=== PATIENT | female | born 1980 | race Caucasian/White ===

== ENCOUNTER 2016-06-28 20:44 | Emergency (ER) | payer MEDICAID ==
[~2016-06-28] VITALS: Ht 172.7 cm; Wt 70.3 kg
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
[2016-06-28 21:42] LABS: APPEARANCE,URINE Cloudy (CLEAR); BLOOD, URINE Small Ery/uL (NEGATIVE); COLOR,URINE Other (YELLOW); KETONES,URINE 80 (NEGATIVE); LEUKOCYTE ESTERASE ,URINE Large (NEGATIVE); NITRITE, URINE Positive (NEGATIVE); PROTEIN,URINE >=300 mg/dl (NEGATIVE); UROBILINOGEN,URINE >=8.0 EU/dL (0.2)
[2016-06-28 21:46] LABS: BILIRUBIN,URINE MODERATE (NEGATIVE); UGLUCOSE 250 MG/DL mg/dL (NEGATIVE)
[2016-06-28 21:53] LABS: PREGNANCY TEST URINE QUAL NEGATIVE (NEGATIVE)
[2016-06-28 21:56] LABS: ADD URINE CULTURE YES; BACTERIA,URINE Few /HPF (None Seen); SQUAMOUS EPITHELIAL CELL,UR Few /HPF (None Seen); URINE AMORPHOUS URATE Moderate /HPF (None Seen)
[2016-06-28] MEDS ORDERED: METRONIDAZOLE 500 MG TABLET ONE (22:07)
[2016-06-28] MEDS ORDERED: METRONIDAZOLE 500 MG TABLET PO ONE (22:30)
--- NOTE | 2016-06-28 22:30 | NUR ---
Patient discharged to home in stable condition. Written and verbal after care instructions given. Patient verbalizes understanding of instruction. AMBULATORY WITH STEADY GAIT.
[2016-06-28 22:32] VITALS: BP 125/94
--- NOTE | 2016-06-28 22:33 | NUR ---
UNABLE TO DEPART PT IN THE COMPUTER
[2016-06-30 22:18] LABS: *NEISSERIA GONORRHOEAE NAA Negative (Negative); CHLAMYDIA TRACHOMATIS NAA Negative (Negative)
== END 2016-06-29 06:22 | disposition home or self-care (01) ==
LOC: ER 06-29 06:20
DX: A59.01 Trichomonal vulvovaginitis (principal); F10.20 Alcohol dependence, uncomplicated
CPT/HCPCS: 81000-TC; 84703-TC; 87086-TC; 87210-TC; 87491; 87591; A4606; Z7610

== ENCOUNTER 2018-03-28 10:15 | Inpatient (IN) | payer MEDICAID ==
[~2018-03-28] VITALS: Ht 170.2 cm; Wt 57.6 kg
[~2018-03-28 10:15] MED LIST: CEPH-570 PO; FOLI1TAB16 PO; LORA-259 PO; THIA100T13 PO
[2018-03-28] MEDS ORDERED: LIDOCAINE 1% INJ 50 ML MDV IJ ONE ×2 (11:00→11:05)
[2018-03-28 11:04] LABS: BASOPHILS # (AUTO) 0.1 /CMM (0.0-0.2); BASOPHILS % (AUTO) 0.5 % (0.0-2.0); EOSINOPHILS % (AUTO) 0.6 % (0.0-6.0); HEMATOCRIT 38 % (33-45); HEMOGLOBIN 12.8 g/dL (11.5-14.8); LYMPHOCYTES # (AUTO) 2.5 /CMM (0.8-4.8); MEAN CORPUSCULAR HGB CONC 34 g/dl (31.0-36.0); MEAN CORPUSCULAR VOLUME 108 fL (82-100); MONOCYTES # (AUTO) 0.7 /CMM (0.1-1.30); MONOCYTES % (AUTO) 5.4 % (2.0-12.0); NEUTROPHILS # (AUTO) 9.1 /CMM (1.8-8.9); NEUTROPHILS % (AUTO) 73.5 % (43.0-81.0); PLATELET COUNT (AUTO) 205 /CMM (150-450); RED BLOOD CELL COUNT(AUTO) 3.51 MIL/uL (4.0-5.2); WHITE BLOOD COUNT (AUTO) 12.3 K/uL (4.3-11.0)
[2018-03-28 11:12] LABS: CALCIUM, SERUM 8.2 mg/dL (8.5-10.1); CREATININE 0.5 mg/dL (0.6-1.3)
[2018-03-28 11:17] LABS: APPEARANCE,URINE Cloudy (CLEAR); BILIRUBIN,URINE Negative (NEGATIVE); BLOOD, URINE Moderate Ery/uL (NEGATIVE); COLOR,URINE Light yellow (YELLOW); KETONES,URINE Negative (NEGATIVE); LEUKOCYTE ESTERASE ,URINE Large (NEGATIVE); NITRITE, URINE Negative (NEGATIVE); PROTEIN,URINE Negative (NEGATIVE); UGLUCOSE Negative (NEGATIVE); UROBILINOGEN,URINE 0.2 EU/dL (0.2)
[2018-03-28 11:17] LABS: BILIRUBIN,TOTAL 0.6 mg/dL (0.2-1.0); TOTAL PROTEIN, SERUM 8.3 g/dL (6.4-8.2)
[2018-03-28 11:19] LABS: MAGNESIUM 1.2 mg/dL (1.8-2.4)
[2018-03-28 11:21] LABS: BACTERIA,URINE 3+ /HPF (None Seen); SQUAMOUS EPITHELIAL CELL,UR Few /HPF (None Seen); WBC,URINE 51-80 /HPF (0-3)
[2018-03-28] MEDS ORDERED: VANCOMYCIN 1 GM in IV D5W 250 ML IV ONE (12:00)
[2018-03-28] MEDS ORDERED: POTASSIUM CHLORIDE 20 MEQ TAB.PRT.SR PO ONE ×2 (12:00→12:07)
[2018-03-28] MEDS ORDERED: CEFTRIAXONE 1 G in IV D5W 50 ML IV ONE (12:00)
--- NOTE | 2018-03-28 12:00 | NUR ---
PELVIC EXAM DONE BY DR. MOYER VAGINAL WET MOUNT AND VAGINAL CX COLLECTED AND SENT OUT. RIGHT HAND BLISTERS EVACUATED BY . PT TOLERATED PROCEDURE WELL.
[2018-03-28 12:03] LABS: LYMPHOCYTES % (MANUAL) 15 % (16-48); MONOCYTES % (MANUAL) 8 % (0-11.0); NEUTROPHILS % (MANUAL) 77 (42-76)
[2018-03-28] MEDS ORDERED: CEFTRIAXONE 1GM BAG (ER ONLY) 50 ML IV ONE (12:06)
[2018-03-28] MEDS ORDERED: POTASSIUM CL. PREMIX PERIPHER. 50 ML ONE (12:06)
[2018-03-28] MEDS ORDERED: VANCOMYCIN 1 GM VIAL ONE (12:06)
--- NOTE | 2018-03-28 12:10 | NUR ---
DR DOCKERY ON LINE TALKING TO DR NOGUERA.
[2018-03-28] MEDS: POTASSIUM CL. PREMIX PERIPHER. 50 ML IV SCH ×2 (12:41→13:00)
--- NOTE | 2018-03-28 12:42 | NUR ---
CULTURE OF LEFT THIGH WOUND SENT OUT. TWO IV SITES INSERTED ON LEFT ARM AND UPPER ARM BOTH GAUGE 20. ABX AND POTASSIUM INFUSING ORDERED.
[2018-03-28] MEDS ORDERED: Magnesium 1GM/D5W 100ML PREMIX 100 ML IV ONE (12:55)
[2018-03-28 13:00] VITALS: BP 155/70
[2018-03-28] MEDS ORDERED: LORAZEPAM 1 MG TABLET PO PRN ×2 (13:00→13:30)
[2018-03-28] MEDS: Magnesium 1GM/D5W 100ML PREMIX 100 ML IV SCH ×2 (13:00→15:22)
[2018-03-28] MEDS ORDERED: METRONIDAZOLE 500 MG TABLET PO ONE (13:00)
[2018-03-28] MEDS ORDERED: METRONIDAZOLE 500 MG TABLET ONE (13:22)
[2018-03-28] MEDS ORDERED: FOLIC ACID 1 MG TABLET ONE (13:24)
[2018-03-28] MEDS: FOLIC ACID 1 MG TABLET PO SCH (13:26)
--- NOTE | 2018-03-28 13:27 | NUR ---
PT GOING TO ROOM 317 REPORT CALLED IN TO SHABBIR SNOW. ROCEPALEJANDRO COMPLETED, VANCO, MAG SULFATE AND POTASSIUM CHLORIDE WILL FINISH INFUSING IN MED-SURG. PT SALINED LOCKED PRIOR TO TRANSPORT VIA WHEELCHAIR. PT SHOWING NO SIGNS OF DISTRESS/PAIN.
[2018-03-28] MEDS ORDERED: MAGNESIUM HYDROXIDE 30 ML UDC PO PRN (13:30)
[2018-03-28] MEDS ORDERED: MAG HYDROX/AL HYDROX/SIMETH 30 ML UDC PO PRN (13:30)
[2018-03-28] MEDS ORDERED: ONDANSETRON HCL/PF 4 MG/2 ML VIAL IVP PRN (13:30)
[2018-03-28] MEDS ORDERED: Z GUARD REMEDY 2 OZ OINT TP PRN (13:30)
[2018-03-28] MEDS ORDERED: ACETAMINOPHEN 325 MG TABLET PO PRN (13:30)
[2018-03-28] MEDS ORDERED: HYDROCODONE/APAP 5/325MG 1 EACH TABLET PO PRN (13:30)
[2018-03-28] MEDS ORDERED: FEE PK DOSING 1 MIN EA MC ONE (13:38)
--- NOTE | 2018-03-28 13:45 | NUR ---
RN MS NOTES RECEIVED PT FROM E.R. STAFF VIA WHEELCHAIR, PT IS AWAKE, ALERT AND ORIENTED, ABLE TO TRANSFER FROM WHEELCHAIR TO BED, ASSISTED TO BED, MADE COMFORTABLE, NO COMPLAINT OF PAIN, BREATHING PATTERN NORMAL, ROOM SET UP ORIENTATION PROVIDED, VERBALIZED UNDERSTANDING, CALL LIGHT PLACED WITHIN EASY REACH, PLAN OF CARE DISCUSSED WITH PT, VERBALIZED UNDERSTANDING, NEEDS ATTENDED.
[2018-03-28] MEDS: IV NS 0.9% 1,000 ML IV PRN (13:57)
[2018-03-28 16:00] VITALS: BP 100/69
[2018-03-28] MEDS ORDERED: POTASSIUM CL. PREMIX PERIPHER. 50 ML IV SCH (16:00)
[2018-03-28] MEDS: LORAZEPAM INJ 2 MG/ML VIAL IV PRN ×2 (18:01→22:53)
--- NOTE | 2018-03-28 18:37 | NUR ---
RN MS NOTES PT IN BED, AWAKE, ALERT AND ORIENTED, WATCHING TV, NO COMPLAINT OF PAIN, IV FLUIDS INFUSING WELL, IV ATIVAN GIVEN ORDERED, PER PT SHE IS STARTING TO FEEL A BIT SHAKY, TOLERATING CURRENT DIET WELL, ALL NEEDS ATTENDED.
--- NOTE | 2018-03-28 19:45 | NUR ---
MS RN NOTE RECEIVED PT IN STABLE CONDITION A&O X4 WITH NO SIGNS OF SOB OR DISTRESS. PT CURRENTLY RESTING IN BED WITH ALL CURRENT NEEDS MET. NO INDICATIONS OF PAIN. SAFETY MEASURES IN PLACE: BED IN LOW/LOCKED POSITION, UPPER BED RAILS UP, AND CALL LIGHT WITHIN REACH.
[2018-03-28 20:00] VITALS: BP 117/64
[2018-03-28] MEDS: VANCOMYCIN 0.75 GM in IV D5W 250 ML IV SCH (21:17)
--- NOTE | 2018-03-28 22:57 | NUR ---
MS RN NOTE ATIVAN DOSE NOT ADMINISTERED D/T MEDICATION NOT TIME TO GIVE. WILL ADMINISTER ONCE ALLOWED. PT. MADE AWARE. WILL CONT. TO MONITOR.
[2018-03-29] MEDS: LORAZEPAM INJ 2 MG/ML VIAL IV PRN ×2 (00:02→20:51)
--- NOTE | 2018-03-29 00:03 | NUR ---
MS RN NOTE PRN ATIVAN 1 MG IV GIVEN TO PATIENT FOR ANXIETY M/B INABILITY TO STAY STILL. ALL VS STABLE. WILL CONT TO MONITOR.
[2018-03-29] MEDS: VANCOMYCIN 0.75 GM in IV D5W 250 ML IV SCH (04:28)
[2018-03-29] MEDS: IV NS 0.9% 1,000 ML IV PRN ×2 (04:33→20:45)
--- NOTE | 2018-03-29 06:24 | NUR ---
MS RN NOTE PT IN STABLE CONDITION A&O X4 WITH NO SIGNS OF SOB OR DISTRESS. PT CURRENTLY RESTING IN BED WITH ALL CURRENT NEEDS MET. NO INDICATIONS OF PAIN. SAFETY MEASURES IN PLACE: BED IN LOW/LOCKED POSITION, UPPER BED RAILS UP, AND CALL LIGHT WITHIN REACH. WILL ENDORSE TO NEXT SHIFT
[2018-03-29 07:08] LABS: BASOPHILS # (AUTO) 0.1 /CMM (0.0-0.2); BASOPHILS % (AUTO) 1.1 % (0.0-2.0); EOSINOPHILS % (AUTO) 2.3 % (0.0-6.0); HEMATOCRIT 37 % (33-45); HEMOGLOBIN 12.5 g/dL (11.5-14.8); LYMPHOCYTES # (AUTO) 1.6 /CMM (0.8-4.8); LYMPHOCYTES % (AUTO) 22.2 % (20.0-44.0); MEAN CORPUSCULAR HGB CONC 34 g/dl (31.0-36.0); MEAN CORPUSCULAR VOLUME 108 fL (82-100); MONOCYTES # (AUTO) 0.5 /CMM (0.1-1.30); MONOCYTES % (AUTO) 6.9 % (2.0-12.0); NEUTROPHILS # (AUTO) 4.9 /CMM (1.8-8.9); NEUTROPHILS % (AUTO) 67.5 % (43.0-81.0); PLATELET COUNT (AUTO) 158 /CMM (150-450); RED BLOOD CELL COUNT(AUTO) 3.42 MIL/uL (4.0-5.2); WHITE BLOOD COUNT (AUTO) 7.2 K/uL (4.3-11.0)
[2018-03-29 07:20] LABS: CALCIUM, SERUM 8.2 mg/dL (8.5-10.1); CREATININE 0.6 mg/dL (0.6-1.3); MAGNESIUM 1.4 mg/dL (1.8-2.4); PHOSPHORUS 3.4 mg/dL (2.5-4.9); POTASSIUM 3.3 mmol/L (3.5-5.1)
--- NOTE | 2018-03-29 07:30 | NUR ---
MS RN OPENING NOTES RECEIVED PATIENT IN STABLE CONDITION. IN NO APPARENT DISTRESS. BEDSIDE RAILS ARE UPX2. BED IS LOCKED AND LOWERED. CALL LIGHT IS WITHIN REACH. IV LINE IS INTACT AND PATENT. WILL CONTINUE TO MONITOR PATIENT.
[2018-03-29 08:00] VITALS: BP 122/78
[2018-03-29] MEDS: FOLIC ACID 1 MG TABLET PO SCH (08:44)
[2018-03-29] MEDS: PANTOPRAZOLE 40 MG TABLET.DR PO SCH (08:44)
[2018-03-29] MEDS: THIAMINE HCL 100 MG TABLET PO SCH (08:44)
[2018-03-29] MEDS ORDERED: POTASSIUM CHLORIDE 20 MEQ TAB.PRT.SR PO SCH (10:30)
[2018-03-29] MEDS: Magnesium 1GM/D5W 100ML PREMIX 100 ML IV SCH ×4 (11:01→15:50)
[2018-03-29] MEDS: NEOMY SULF/BACITRAC ZN/POLY 15 GM TUBE TP SCH (12:31)
[2018-03-29] MEDS: METRONIDAZOLE 500 MG TABLET PO SCH ×2 (13:38→20:45)
[2018-03-29] MEDS ORDERED: CEFTRIAXONE 1 G in IV D5W 50 ML IV SCH (14:00)
[2018-03-29 16:00] VITALS: BP 112/72
[2018-03-29] MEDS: LACTOBACILLUS RHAMNOSUS GG 1 EACH CAP.SPRINK PO SCH (16:10)
--- NOTE | 2018-03-29 16:40 | NUR ---
Social service consult requested by [employer] for homelessness. Pt is a 38 year old female admitted to [facility] for acute concerns (alcohol withdrawals, blisters on her fingers and vaginal discharge per H&P). Sw met with pt at bedside, pt appeared to be clean and well-groomed. Pt had some of her belongings at beside. Pt is alert and oriented x4. Pt states she has been homeless on and of for many years. Pt [place] on [facility] or by the [facility] Pt reports she has been excessively drinking alcohol since 1994, pt reports she began drinking wine however now she drinks Vodka (1.75ml a day). Pt reports that she has recently lost her 23 year old brother to heroin. Pt has a daughter. Pt reports at time she resides with her sister Deena Vasques ( would not provide contact number, pt states she is not always cooperative over the phone). Pt reports she has a good relationship with her emergency contact her brother Jossue De Leon ([phone]). Pt reports alcohol abuse, denies any illisit drugs or tobacco use. Pt also reports she has been to multiple treatment centers including [facility]. Pt is hoping to return to [facility] post discharge when she is ready. Ondina provided emotional support and brief substance abuse intervention and referred to [facility], [facility] , [facility], , and [facility] . Ondina offered pt [facility] [place] [facility] placement and pt agreed to accept resources, sw also provided pt with [facility], food pantry and homeless resources in the [facility] area. Pt accepted all resources. Pts discharge plan is to discharge to her brother Jossue De Leon ([phone]) and return to her sisters home (address: [address] [place] [address]). Homeless patient waiver signed prior to discharge. ONDINA informed SHABBIR Ann of aforementioned discharge plan.
--- NOTE | 2018-03-29 19:23 | NUR ---
MS RN NOTES RECEIVE PT IN BED A/O X 4, IN STABLE CONDITION, NOT IN DISTRESS, SAFETY MEASURES IN PLACE. WILL CONTINUE TO MONITOR.
[2018-03-29 20:00] VITALS: BP_SYST 107; BP_SYST 109; BP_DIAS 79
--- NOTE | 2018-03-29 21:51 | NUR ---
MS RN NOTES PER PT SHE IS CALM NOW ATIVAN EFFECTIVE
[2018-03-30] MEDS: LORAZEPAM INJ 2 MG/ML VIAL IV PRN (03:39)
--- NOTE | 2018-03-30 04:39 | NUR ---
MS RN NOTES PER SHE IS MORE CALM ATIVAN EFFECTIVE
[2018-03-30] MEDS: METRONIDAZOLE 500 MG TABLET PO SCH ×2 (05:27→13:10)
--- NOTE | 2018-03-30 06:19 | NUR ---
MS RN CLOSING NOTES ASLEEP AND EASILY AWAKEN, ALL NURSING CARE RENDERED. NEEDS ATTENDED AND ANTICIPATED. NO COMPLAIN OF PAIN AT THIS TIME. TX ORDERED. GOOD SKIN CARE PROVIDED. KEPT CLEAN AND DRY AND COMFORTABLE, ON LOW BED AT ALL TIMES TO ENSURE SAFETY. SAFE HAZARD FREE ENVIRONMENT PROVIDED. CALL LIGHT WITHIN EASY TO REACH. WILL ENDORSE NEXT SHIFT CONTINUITY OF CARE
[2018-03-30 07:26] LABS: CALCIUM, SERUM 8.2 mg/dL (8.5-10.1); CREATININE 0.5 mg/dL (0.6-1.3); MAGNESIUM 1.9 mg/dL (1.8-2.4); POTASSIUM 4.1 mmol/L (3.5-5.1)
--- NOTE | 2018-03-30 07:30 | NUR ---
RN OPENING NOTES RECEIVED PT. PT IS STABLE AND RESTING IN BED. NO S/S OF RESP DISTRESS OR SOB. NO C/O PAIN AT THIS TIME. IV ACCESS LOCATED ON RFA, 20G INFUSING NS AT 100 ML/HR. SAFETY MEASURES IN PLACE, CALL LIGHT WITHIN REACH. WILL CONTINUE TO MONITOR.
[2018-03-30 08:00] VITALS: BP 116/80
[2018-03-30] MEDS: NEOMY SULF/BACITRAC ZN/POLY 15 GM TUBE TP SCH (09:08)
[2018-03-30] MEDS: FOLIC ACID 1 MG TABLET PO SCH (09:08)
[2018-03-30] MEDS: PANTOPRAZOLE 40 MG TABLET.DR PO SCH (09:08)
[2018-03-30] MEDS: LACTOBACILLUS RHAMNOSUS GG 1 EACH CAP.SPRINK PO SCH (09:08)
[2018-03-30] MEDS: THIAMINE HCL 100 MG TABLET PO SCH (09:09)
[2018-03-30] MEDS ORDERED: CEFTRIAXONE 1 G in IV D5W 50 ML IV SCH (13:00)
[2018-03-30] MEDS ORDERED: SULF1TAB48 PO (13:24)
[2018-03-30] MEDS ORDERED: METR500T PO (13:24)
--- NOTE | 2018-03-30 15:51 | NUR ---
DISCHARGE NOTE PT DISCHARGED HOME. VSS, PT STABLE. NO S/S OF RESP DISTRESS/SOB. NO C/O PAIN. D/C TEACHING PERFORMED, PT VERBALIZED UNDERSTANDING OF EDUCATION. DC INSTRUCTIONS AND BELONGINGS LIST SIGNED, COPIED, PLACED IN CHART. PT GIVEN PRESCRIPTION FOR PO ANTIBIOTICS, SCRIPT COPIED AND COPY PLACED IN CHART. PT REFUSED PHOTO WOUND DOCUMENTATION UPON D/C. IV ACCESS AND ID BAND REMOVED. PT LEFT HOSPITAL IN PRIVATE VEHICLE WITH FRIEND.
== END 2018-03-30 15:45 | disposition home or self-care (01) | DRG 383 ==
LOC: ER 10:16 → MED 12:59
PROVIDERS: ADMIT Internal Medicine
PROC: 0H9FXZZ Drainage of Right Hand Skin, External Approach (ICD-10-PCS; principal; 2018-03-28)
DX: L08.9 Local infection of the skin and subcutaneous tissue, unspecified (principal); E83.42 Hypomagnesemia; A56.02 Chlamydial vulvovaginitis; E87.1 Hypo-osmolality and hyponatremia; S60.422A Blister (nonthermal) of right middle finger, initial encounter; E87.6 Hypokalemia; N39.0 Urinary tract infection, site not specified; F10.239 Alcohol dependence with withdrawal, unspecified; Z59.0 Homelessness; B95.0 Streptococcus, group A, as the cause of diseases classified elsewhere; X58.XXXA Exposure to other specified factors, initial encounter; Y93.9 Activity, unspecified; Y92.9 Unspecified place or not applicable; B96.20 Unspecified Escherichia coli [E. coli] as the cause of diseases classified elsewhere
CPT/HCPCS: 36415; 80048-TC; 80053-TC; 80202-TC; 81000-TC; 83690-TC; 83735-TC; 84100-TC; 84702-TC; 85025-TC; 87070-TC; 87081-TC; 87086-TC; 87186-TC; 87210-TC; 87491; 87591; A4606; A6403; A6407; G0378; J0696; J2060; J3370; J3475; J3480; J3490; J7030; J7050; J7060; Z7610

== ENCOUNTER 2018-07-29 07:17 | Emergency (ER) | payer MEDICAID, OTHER ==
[~2018-07-29] VITALS: Ht 172.7 cm; Wt 63.5 kg
[~2018-07-29 07:17] MED LIST changes: -CEPH-570 PO; -LORA-259 PO; +METR500T PO; +SULF1TAB48 PO
[2018-07-29 07:24] VITALS: BP 115/88
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
--- NOTE | 2018-07-29 07:45 | NUR ---
URINE COLLECTED AND SENT TO LAB
--- NOTE | 2018-07-29 08:15 | NUR ---
PATIENT LEFT FOR X-RAY VIA GURNEY IN STABLE CONDITION
== END 2018-07-29 09:40 | disposition home or self-care (01) ==
LOC: ER 07:18
DX: S20.211A Contusion of right front wall of thorax, initial encounter (principal); F10.10 Alcohol abuse, uncomplicated; F19.10 Other psychoactive substance abuse, uncomplicated; Y90.9 Presence of alcohol in blood, level not specified; Z59.0 Homelessness; Z88.1 Allergy status to other antibiotic agents; W18.39XA Other fall on same level, initial encounter; Y93.89 Activity, other specified; Y92.89 Other specified places as the place of occurrence of the external cause; Y99.8 Other external cause status
CPT/HCPCS: 71100-TC; 84703-TC

== ENCOUNTER 2018-08-18 01:31 | Emergency (ER) ==
[~2018-08-18] VITALS: Ht 172.7 cm; Wt 64.4 kg
[2018-08-18] MEDS ORDERED: Magnesium 1GM/D5W 100ML PREMIX 100 ML IV ONE ×2 (01:51→02:10)
[2018-08-18] MEDS ORDERED: LORAZEPAM INJ 2 MG/ML VIAL ONE ×2 (01:52→03:22)
[2018-08-18 02:00] LABS: BASOPHILS % (AUTO) 0.3 % (0.0-2.0); MEAN CORPUSCULAR HGB CONC 35 g/dl (31.0-36.0); MONOCYTES # (AUTO) 1.2 /CMM (0.1-1.30); PLATELET COUNT (AUTO) 89 /CMM (150-450)
[2018-08-18] MEDS ORDERED: IV NS 0.9% 1,000 ML BAG IV ONE (02:00)
[2018-08-18] MEDS: Magnesium 1GM/D5W 100ML PREMIX 100 ML IV SCH ×4 (02:00→03:35)
[2018-08-18] MEDS ORDERED: LORAZEPAM INJ 2 MG/ML VIAL IVP ONE (02:00)
--- NOTE | 2018-08-18 02:00 | NUR ---
bib family for alcohol withdrawal and drug abuse. noted with tremors. placed on a monitor. RAC 20G IV started , blood was drawn and sent to the lab.
[2018-08-18 02:06] LABS: BASOPHILS # (AUTO) 0.1 /CMM (0.0-0.2); HEMATOCRIT 37 % (33-45); HEMOGLOBIN 12.7 g/dL (11.5-14.8); LYMPHOCYTES # (AUTO) 1.2 /CMM (0.8-4.8); LYMPHOCYTES % (AUTO) 7.6 % (20.0-44.0); MEAN CORPUSCULAR VOLUME 104 fL (82-100); MONOCYTES % (AUTO) 7.1 % (2.0-12.0); NEUTROPHILS # (AUTO) 13.9 /CMM (1.8-8.9); WHITE BLOOD COUNT (AUTO) 16.4 K/uL (4.3-11.0)
--- NOTE | 2018-08-18 02:07 | NUR ---
PER DR RAMIREZ'S ORDER TO RUN THE MAGNESIUM 1GR IV OVER 15 MINUTES
[2018-08-18 02:17] LABS: CALCIUM, SERUM 7.7 mg/dL (8.5-10.1); CREATININE 1.3 mg/dL (0.6-1.3)
[2018-08-18 02:21] LABS: ALBUMIN 3.1 g/dL (3.4-5.0); BILIRUBIN,DIRECT 0.3 mg/dL (0.0-0.2); BILIRUBIN,TOTAL 1.2 mg/dL (0.2-1.0); SALICYLATE 0.6 mg/dL (2.8-20.0); TOTAL PROTEIN, SERUM 8.6 g/dL (6.4-8.2)
[2018-08-18] MEDS ORDERED: ONDANSETRON HCL/PF 4 MG/2 ML VIAL ONE (02:22)
[2018-08-18 02:52] LABS: LYMPHOCYTES % (MANUAL) 4 % (16-48); MONOCYTES % (MANUAL) 4 % (0-11.0); NEUTROPHILS % (MANUAL) 92 (42-76)
[2018-08-18] MEDS ORDERED: IV PREMIX D5 NS + KCL 1,000 ML IV ONE (03:12)
[2018-08-18] MEDS ORDERED: Magnesium 1GM/D5W 100ML PREMIX 200 ML IV ONE (03:13)
[2018-08-18] MEDS ORDERED: IV PREMIX D5 1/2NS + KCL 1,000 ML IV ONE (03:13)
--- NOTE | 2018-08-18 03:25 | NUR ---
ativan 2mg vial was pulled out from the omnicll. 1mg was wasted with the damian funk rn and 1mg IVP was administered as ordered.
[2018-08-18] MEDS ORDERED: LORAZEPAM INJ 2 MG/ML VIAL IV ONE (03:30)
[2018-08-18] MEDS ORDERED: POTASSIUM CHLORIDE 20 MEQ TAB.PRT.SR PO ONE ×2 (03:30→03:48)
[2018-08-18] MEDS ORDERED: ONDANSETRON HCL/PF - ER 4 MG/2 ML VIAL IV ONE (03:30)
[2018-08-18] MEDS ORDERED: ACETAMINOPHEN ES 500 MG TABLET ONE (03:44)
[2018-08-18] MEDS ORDERED: ACETAMINOPHEN ES 500 MG TABLET PO ONE (04:00)
[2018-08-18 04:08] LABS: APPEARANCE,URINE Slightly Cloudy (CLEAR); BILIRUBIN,URINE Negative (NEGATIVE); BLOOD, URINE Moderate Ery/uL (NEGATIVE); COLOR,URINE Amber (YELLOW); KETONES,URINE Negative (NEGATIVE); LEUKOCYTE ESTERASE ,URINE Trace (NEGATIVE); NITRITE, URINE Positive (NEGATIVE); PH,URINE 5.5 (5.0-8.0); PROTEIN,URINE >=300 mg/dl (NEGATIVE); UGLUCOSE Negative (NEGATIVE)
[2018-08-18] MEDS ORDERED: CT SWABBABLE VALVE TRANS SET 1 EA INFUS.SET MC ONE (04:12)
[2018-08-18] MEDS ORDERED: IOHEXOL-300 100 ML VIAL IV ONE (04:12)
[2018-08-18] MEDS ORDERED: IV NS 0.9% 250 ML IV ONE (04:13)
--- NOTE | 2018-08-18 04:25 | NUR ---
PT LEFT FOR CT
[2018-08-18] MEDS ORDERED: CEFTRIAXONE 1 G in IV D5W 50 ML IV ONE (04:30)
--- NOTE | 2018-08-18 04:40 | NUR ---
BACK FROM CT IN STABLE CONDITION
[2018-08-18] MEDS ORDERED: CEFTRIAXONE 1GM BAG (ER ONLY) 50 ML IV ONE (04:51)
[2018-08-18] MEDS ORDERED: IBUPROFEN 600 MG TABLET PO ONE ×2 (05:03→05:30)
--- NOTE | 2018-08-18 05:07 | NUR ---
DR RAMIREZ MADE AWARE OF THE HIGH TEMP WITH A NEW ORDER FOR MOTRIN. NOTED
--- NOTE | 2018-08-18 05:36 | NUR ---
PER PT SHE IS NOT TAKING ANY MEDICATION AT HOME.
--- NOTE | 2018-08-18 05:57 | NUR ---
PT GONG TO TELE BED 326-2.
--- NOTE | 2018-08-18 06:04 | NUR ---
REPORT GIVEMN TO HUSAM SHEA. ON THIRD FLOOR
--- NOTE | 2018-08-18 06:43 | NUR ---
Patient is resting comfortably in bed with eyes closed. Easily aroused. VSS
[2018-08-18 06:45] LABS: BACTERIA,URINE Many /HPF (None Seen); SQUAMOUS EPITHELIAL CELL,UR Few /HPF (None Seen); WBC,URINE 51-80 /HPF (0-3)
--- NOTE | 2018-08-18 07:09 | NUR ---
PT ASLEEP ON MONITOR ST AT 109 ALERT AND ORINTED WHEN AWOKEN TEMPERATURE REDUCED PENDING ADMISSION
--- NOTE | 2018-08-18 07:59 | NUR ---
PT RE-EVALUATED BY MD BONILLA PT DISCHARGED TO HOME WITH [facility]CI AND PRESCRIPTION. PT STATES SHE IS NOT READY TO GO NEEDS ALEXANDRA SLEEP A LITTLE MORE. PT HAS ETOH ABUSE ANF WAS GIVEN ATIVAN
--- NOTE | 2018-08-18 08:46 | NUR ---
PT STILL UNSTEADY ON FEET USED BED KINGSLEY FOR URINATION
[2018-08-18 09:17] VITALS: BP 105/75
--- NOTE | 2018-08-18 09:18 | NUR ---
PT DISCHARGED TO HOME WITH FAMILY MEMBER DRIVING PT WALKED WITH STEADY GAIT
== END 2018-08-18 09:19 | disposition home or self-care (01) ==
LOC: ER 01:35 → UNDOADMIN 05:58 → TELE 05:58 → ER 09:19
DX: N12 Tubulo-interstitial nephritis, not specified as acute or chronic (principal); F10.239 Alcohol dependence with withdrawal, unspecified; Z87.891 Personal history of nicotine dependence; Z88.1 Allergy status to other antibiotic agents; Z79.899 Other long term (current) drug therapy; Y90.0 Blood alcohol level of less than 20 mg/100 ml
CPT/HCPCS: 36415; 71045; 74177; 80048; 80076; 80305; 80307; 80329; 81001; 83690; 83735; 84484; 84703; 85025; 87077; 87081; 87086; 87186; 93005; 96365; 96366; 96368; 96375; 96376; 99284; G0480; J0696 ×2; J2060 ×3; J2405 ×2; J3475 ×3; J3490 ×2; J7030; J7050; J7060; Q9967; 81000-TC

== ENCOUNTER 2018-09-14 12:28 | Emergency (ER) | payer OTHER ==
[~2018-09-14] VITALS: Ht 172.7 cm; Wt 65.8 kg
--- NOTE | 2018-09-14 12:40 | NUR ---
CAME IN FOR ALBUTEROL REFILL. TO ER BED 10, HOOKED TO MONITOR, AWAITING MD ALARCON
--- NOTE | 2018-09-14 12:55 | NUR ---
MARCELL RUTLEDGE AT BEDSIDE
[2018-09-14] MEDS ORDERED: predniSONE 20 MG TABLET PO ONE (13:00)
[2018-09-14] MEDS ORDERED: IPRATROPIUM NEB FS 0.5 MG/2.5 ML AMPUL.NEB NEB ONE (13:00)
[2018-09-14] MEDS ORDERED: ALBUTEROL FS 2.5 MG/3 ML VIAL.NEB NEB ONE (13:00)
[2018-09-14] MEDS ORDERED: predniSONE 20 MG TABLET ONE (13:05)
[2018-09-14] MEDS ORDERED: IPRATROPIUM NEB FS 0.5 MG/2.5 ML AMPUL.NEB ONE (13:18)
[2018-09-14] MEDS ORDERED: ALBUTEROL FS 2.5 MG/3 ML VIAL.NEB ONE (13:18)
--- NOTE | 2018-09-14 13:25 | NUR ---
RT AT BEDSIDE, STARTED PT ON BREATHING TREATMENT
--- NOTE | 2018-09-14 14:31 | NUR ---
Patient discharged to home in stable condition. Written and verbal after care instructions given. Patient verbalizes understanding of instruction.
[2018-09-14 14:32] VITALS: BP 109/71
== END 2018-09-14 14:32 | disposition home or self-care (01) ==
LOC: ER 12:50
DX: J45.909 Unspecified asthma, uncomplicated (principal); F19.10 Other psychoactive substance abuse, uncomplicated; F10.10 Alcohol abuse, uncomplicated; F11.10 Opioid abuse, uncomplicated; Y90.9 Presence of alcohol in blood, level not specified; Z76.0 Encounter for issue of repeat prescription; Z88.1 Allergy status to other antibiotic agents; Z60.2 Problems related to living alone
CPT/HCPCS: 94644; 99285; J7512

== ENCOUNTER 2018-09-22 17:08 | Emergency (ER) | payer OTHER ==
[~2018-09-22] VITALS: Ht 160 cm; Wt 49.9 kg
--- NOTE | 2018-09-22 17:30 | NUR ---
SENT HERE FROM URGENT CARE DUE TO FOUL SMELLING BLOODY VAGINAL DISCHARGE. PT AAOX4, VSS. DENIES ANY OTHER DISCOMFORT AT THIS TIME. AWAITING EVAL BY ERMD/TECHNICIAN TERMINAL AND REPEATER. WILL CONT TO MONITOR.
[2018-09-22] MEDS ORDERED: CEFTRIAXONE 500 MG VIAL ONE (18:22)
[2018-09-22] MEDS ORDERED: AZITHROMYCIN 250 MG TABLET ONE (18:22)
[2018-09-22] MEDS ORDERED: PENICILLIN G BENZATHINE 2.4 MMU/4 ML ML IM ONE ×2 (18:23→18:30)
[2018-09-22] MEDS ORDERED: CEFTRIAXONE 500 MG VIAL IM ONE (18:30)
[2018-09-22] MEDS ORDERED: AZITHROMYCIN 250 MG TABLET PO ONE (18:30)
--- NOTE | 2018-09-22 18:40 | NUR ---
MEDICATED PER BECCA COURTROOM CLERK'S ORDER. PT BOB WELL.
[2018-09-22 19:19] VITALS: BP 127/86
--- NOTE | 2018-09-22 19:19 | NUR ---
Patient discharged to home in stable condition. Written and verbal after care instructions given. Patient verbalizes understanding of instruction.
== END 2018-09-22 19:20 | disposition home or self-care (01) ==
LOC: ER 17:11
DX: A64 Unspecified sexually transmitted disease (principal); F19.10 Other psychoactive substance abuse, uncomplicated; F10.10 Alcohol abuse, uncomplicated; F11.10 Opioid abuse, uncomplicated; Y90.9 Presence of alcohol in blood, level not specified; Z88.1 Allergy status to other antibiotic agents; Z60.2 Problems related to living alone
CPT/HCPCS: 36415; 80074; 86780; 87806; 96372 ×2; 99283; J0558; J0696

== ENCOUNTER 2018-12-01 10:36 | Emergency (ER) | payer OTHER ==
[~2018-12-01] VITALS: Ht 172.7 cm; Wt 63.0 kg
--- NOTE | 2018-12-01 10:55 | NUR ---
SEEN BY DR BARROS, VERBALIZED SHE IS NOW HOMELESS
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
--- NOTE | 2018-12-01 11:16 | NUR ---
ONDINA DUARTE AT BEDSIDE FOR EVAL.
--- NOTE | 2018-12-01 11:19 | NUR ---
CALLED DIETARY FOR FOOD TRAY
--- NOTE | 2018-12-01 11:36 | NUR ---
[employer] AT BEDSIDE
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
--- NOTE | 2018-12-01 12:20 | NUR ---
Patient given written and verbal discharge instructions. Patient verbalizes understanding of instructions. Patient is ambulatory with steady gait. Refuses offer of retirement placement. Patient given list of available shelters in surrounding area.
[2018-12-01 12:23] VITALS: BP 132/86
== END 2018-12-01 12:20 | disposition home or self-care (01) ==
LOC: ER 10:38
DX: S00.531A Contusion of lip, initial encounter (principal); S40.021A Contusion of right upper arm, initial encounter; F10.10 Alcohol abuse, uncomplicated; F19.10 Other psychoactive substance abuse, uncomplicated; F11.10 Opioid abuse, uncomplicated; Y90.9 Presence of alcohol in blood, level not specified; Z88.1 Allergy status to other antibiotic agents; Y04.8XXA Assault by other bodily force, initial encounter; Y93.89 Activity, other specified; Y92.89 Other specified places as the place of occurrence of the external cause; Y99.8 Other external cause status

== ENCOUNTER → 2018-12-18 | Emergency (ER) | payer OTHER ==
[~2018-12-18] VITALS: Ht 172.7 cm; Wt 60.3 kg
[~2018-12-18] MED LIST changes: -FOLI1TAB16 PO; +IV NS 0.9% 1,000 ML BAG IV ONE; +KETOROLAC TROMETHAMINE 15 MG/ML VIAL ONE; +KETOROLAC TROMETHAMINE INJ 30 MG/ML VIAL IV ONE; -METR500T PO; +ONDANSETRON HCL/PF 4 MG/2 ML VIAL IVP ONE; +ONDANSETRON HCL/PF 4 MG/2 ML VIAL ONE; -SULF1TAB48 PO; -THIA100T13 PO
[2018-12-18 09:42] LABS: BASOPHILS # (AUTO) 0.2 /CMM (0.0-0.2); BASOPHILS % (AUTO) 4.1 % (0.0-2.0); EOSINOPHILS % (AUTO) 0.9 % (0.0-6.0); HEMATOCRIT 38 % (33-45); HEMOGLOBIN 13.1 g/dL (11.5-14.8); LYMPHOCYTES # (AUTO) 1.7 /CMM (0.8-4.8); LYMPHOCYTES % (AUTO) 39.1 % (20.0-44.0); MEAN CORPUSCULAR HGB CONC 34 g/dl (31.0-36.0); MEAN CORPUSCULAR VOLUME 100 fL (82-100); MONOCYTES # (AUTO) 0.3 /CMM (0.1-1.30); MONOCYTES % (AUTO) 8.2 % (2.0-12.0); NEUTROPHILS % (AUTO) 47.7 % (43.0-81.0); PLATELET COUNT (AUTO) 203 /CMM (150-450); WHITE BLOOD COUNT (AUTO) 4.2 K/uL (4.3-11.0)
[2018-12-18 09:45] LABS: APPEARANCE,URINE Clear (CLEAR); BILIRUBIN,URINE Negative (NEGATIVE); BLOOD, URINE Trace-lysed Ery/uL (NEGATIVE); COLOR,URINE Yellow (YELLOW); KETONES,URINE Negative (NEGATIVE); LEUKOCYTE ESTERASE ,URINE Trace (NEGATIVE); NITRITE, URINE Negative (NEGATIVE); PROTEIN,URINE 100 mg/dl (NEGATIVE); UGLUCOSE Negative (NEGATIVE)
[2018-12-18 09:49] LABS: CALCIUM, SERUM 8.6 mg/dL (8.5-10.1); CREATININE 0.6 mg/dL (0.6-1.3); POTASSIUM 3.5 mmol/L (3.5-5.1)
[2018-12-18 09:54] LABS: BACTERIA,URINE Few /HPF (None Seen); SQUAMOUS EPITHELIAL CELL,UR Few /HPF (None Seen)
--- NOTE | 2018-12-18 10:39 | NUR ---
PATIENT AWAKE ALERT MADE AWARE PLAN OF CARE
--- NOTE | 2018-12-18 11:05 | NUR ---
DC HOME INTRUCTION GIVEN AGREES TO CALL PMD IN 2 DAYS VERBALIZED UNDERSTANDING
[2018-12-18 11:07] VITALS: BP 123/67
== END | disposition home or self-care (01) ==
LOC: ER 09:11
DX: N12 Tubulo-interstitial nephritis, not specified as acute or chronic (principal); Z88.1 Allergy status to other antibiotic agents
CPT/HCPCS: 36415; 80048; 81001; 84703; 85025; 87086; 96374; 96375; 99283; J1885; J2405; J7030; 81000-TC

== ENCOUNTER 2019-02-10 16:26 | Emergency (ER) | payer OTHER ==
[~2019-02-10] VITALS: Ht 172.7 cm; Wt 64.9 kg
[2019-02-10 16:44] VITALS: BP 106/78
[2019-02-10 18:18] LABS: APPEARANCE,URINE Clear (CLEAR); BILIRUBIN,URINE Negative (NEGATIVE); BLOOD, URINE Small Ery/uL (NEGATIVE); COLOR,URINE Yellow (YELLOW); KETONES,URINE Negative (NEGATIVE); LEUKOCYTE ESTERASE ,URINE Small (NEGATIVE); NITRITE, URINE Negative (NEGATIVE); PH,URINE 6.5 (5.0-8.0); PROTEIN,URINE Negative (NEGATIVE); UGLUCOSE Negative (NEGATIVE); UROBILINOGEN,URINE 0.2 EU/dL (0.2)
[2019-02-10 18:38] LABS: BACTERIA,URINE 1+ /HPF (None Seen); SQUAMOUS EPITHELIAL CELL,UR Few /HPF (None Seen)
[2019-02-10 18:46] LABS: BASOPHILS # (AUTO) 0.1 /CMM (0.0-0.2); BASOPHILS % (AUTO) 1.5 % (0.0-2.0); EOSINOPHILS % (AUTO) 2.9 % (0.0-6.0); HEMATOCRIT 37 % (33-45); HEMOGLOBIN 12.6 g/dL (11.5-14.8); LYMPHOCYTES # (AUTO) 2.2 /CMM (0.8-4.8); LYMPHOCYTES % (AUTO) 48.7 % (20.0-44.0); MEAN CORPUSCULAR HGB CONC 34 g/dl (31.0-36.0); MEAN CORPUSCULAR VOLUME 103 fL (82-100); MONOCYTES # (AUTO) 0.2 /CMM (0.1-1.30); MONOCYTES % (AUTO) 5.2 % (2.0-12.0); NEUTROPHILS # (AUTO) 1.9 /CMM (1.8-8.9); NEUTROPHILS % (AUTO) 41.7 % (43.0-81.0); PLATELET COUNT (AUTO) 134 /CMM (150-450); RED BLOOD CELL COUNT(AUTO) 3.61 MIL/uL (4.0-5.2); WHITE BLOOD COUNT (AUTO) 4.6 K/uL (4.3-11.0)
[2019-02-10 18:52] LABS: CALCIUM, SERUM 8.4 mg/dL (8.5-10.1); CREATININE 0.7 mg/dL (0.6-1.3); POTASSIUM 3.7 mmol/L (3.5-5.1)
[2019-02-10 18:58] LABS: BILIRUBIN,DIRECT 0.1 mg/dL (0.0-0.2); BILIRUBIN,TOTAL 0.3 mg/dL (0.2-1.0); TOTAL PROTEIN, SERUM 8.4 g/dL (6.4-8.2)
[2019-02-10] MEDS: NITROFURANTOIN/NITROFURAN MAC 100 MG CAPSULE PO ONE (19:45)
== END 2019-02-10 19:45 | disposition home or self-care (01) ==
LOC: ER 16:28
DX: N39.0 Urinary tract infection, site not specified (principal); F10.20 Alcohol dependence, uncomplicated; R10.31 Right lower quadrant pain; D53.9 Nutritional anemia, unspecified; D69.6 Thrombocytopenia, unspecified; A53.9 Syphilis, unspecified; Y90.9 Presence of alcohol in blood, level not specified; Z59.0 Homelessness; Z88.1 Allergy status to other antibiotic agents
CPT/HCPCS: 36415; 80048-TC; 80076-TC; 81000-TC; 84703-TC; 85025-TC; 87086-TC; 87186-TC

== ENCOUNTER 2019-07-13 12:30 | Emergency (ER) | payer OTHER ==
[~2019-07-13] VITALS: Ht 172.7 cm; Wt 68.0 kg
[2019-07-13 12:39] VITALS: BP 129/94
== END 2019-07-13 13:02 | disposition home or self-care (01) ==
LOC: ER 12:30
DX: B07.0 Plantar wart (principal); Z88.1 Allergy status to other antibiotic agents
CPT/HCPCS: 82962-TC

== ENCOUNTER 2019-10-07 13:11 | Emergency (ER) | payer OTHER ==
[~2019-10-07] VITALS: Ht 172.7 cm; Wt 59.0 kg
[2019-10-07 13:27] VITALS: BP 102/78
--- NOTE | 2019-10-07 13:56 | NUR ---
Patient awake alert non distress noted able to ambulated to bathroom urine obatined and send to lab
[2019-10-07 14:02] LABS: BILIRUBIN,URINE SMALL (NEGATIVE); BLOOD, URINE Negative Ery/uL (NEGATIVE); COLOR,URINE Yellow (YELLOW); KETONES,URINE Trace (NEGATIVE); LEUKOCYTE ESTERASE ,URINE Small (NEGATIVE); NITRITE, URINE Positive (NEGATIVE); PH,URINE 6.5 (5.0-8.0); PROTEIN,URINE 30 mg/dl (NEGATIVE); UGLUCOSE Negative (NEGATIVE)
[2019-10-07 14:07] LABS: APPEARANCE,URINE SLIGHTLY CLOUDY (CLEAR)
[2019-10-07 14:09] LABS: BACTERIA,URINE Many /HPF (None Seen); SQUAMOUS EPITHELIAL CELL,UR Few /HPF (None Seen); WBC,URINE 20-25 /HPF (0-3)
[2019-10-07 15:05] LABS: BASOPHILS # (AUTO) 0.1 /CMM (0.0-0.2); BASOPHILS % (AUTO) 2.3 % (0.0-2.0); EOSINOPHILS % (AUTO) 2.1 % (0.0-6.0); HEMATOCRIT 39 % (33-45); LYMPHOCYTES # (AUTO) 1.6 /CMM (0.8-4.8); MEAN CORPUSCULAR HGB CONC 34 g/dl (31.0-36.0); MEAN CORPUSCULAR VOLUME 96 fL (82-100); MONOCYTES # (AUTO) 0.3 /CMM (0.1-1.30); MONOCYTES % (AUTO) 10.8 % (2.0-12.0); NEUTROPHILS # (AUTO) 1.1 /CMM (1.8-8.9); NEUTROPHILS % (AUTO) 35.8 % (43.0-81.0); PLATELET COUNT (AUTO) 118 /CMM (150-450); RED BLOOD CELL COUNT(AUTO) 4.05 MIL/uL (4.0-5.2); WHITE BLOOD COUNT (AUTO) 3.2 K/uL (4.3-11.0)
[2019-10-07 15:14] LABS: CREATININE 0.8 mg/dL (0.6-1.3); POTASSIUM 3.6 mmol/L (3.5-5.1)
[2019-10-07 15:20] LABS: ALBUMIN 3.6 g/dL (3.4-5.0); BILIRUBIN,DIRECT 0.1 mg/dL (0.0-0.2); BILIRUBIN,TOTAL 0.3 mg/dL (0.2-1.0); TOTAL PROTEIN, SERUM 7.7 g/dL (6.4-8.2)
--- NOTE | 2019-10-07 15:30 | NUR ---
Patient discharged to home in stable condition. Written and verbal after care instructions given. Patient verbalizes understanding of instruction.
--- NOTE | 2019-10-07 15:31 | NUR ---
DC home with prescription ,i removed helplock RAC noted cath intact no edema no pain
== END 2019-10-07 15:31 | disposition home or self-care (01) ==
LOC: ER 13:15
DX: N39.0 Urinary tract infection, site not specified (principal); Z88.1 Allergy status to other antibiotic agents
CPT/HCPCS: 36415; 80048-TC; 80076-TC; 81000-TC; 83690-TC; 84703-TC; 85025-TC; 87086-TC; 87186-TC

== ENCOUNTER 2019-10-24 13:29 | Emergency (ER) | payer OTHER ==
[~2019-10-24] VITALS: Ht 172.7 cm; Wt 67.1 kg
[2019-10-24 13:40] VITALS: BP 120/85
--- NOTE | 2019-10-24 13:56 | NUR ---
dr lee at bedside for eval.
[2019-10-24 14:02] LABS: BILIRUBIN,URINE MODERATE (NEGATIVE); BLOOD, URINE Small Ery/uL (NEGATIVE); KETONES,URINE 15 (NEGATIVE); LEUKOCYTE ESTERASE ,URINE Small (NEGATIVE); NITRITE, URINE Positive (NEGATIVE); PROTEIN,URINE >=300 mg/dl (NEGATIVE); UGLUCOSE Negative (NEGATIVE); UROBILINOGEN,URINE 0.2 EU/dL (0.2)
[2019-10-24 14:09] LABS: APPEARANCE,URINE SLIGHTLY CLOUDY (CLEAR); COLOR,URINE DARK YELLOW (YELLOW)
[2019-10-24 14:30] LABS: BACTERIA,URINE Many /HPF (None Seen); MUCUS,URINE Many /LPF (None Seen); SQUAMOUS EPITHELIAL CELL,UR Few /HPF (None Seen)
--- NOTE | 2019-10-24 14:55 | NUR ---
Patient discharged to home in stable condition. Written and verbal after care instructions given. Patient verbalizes understanding of instruction.
== END 2019-10-24 14:56 | disposition home or self-care (01) ==
LOC: ER 13:32
DX: N39.0 Urinary tract infection, site not specified (principal); F32.9 Major depressive disorder, single episode, unspecified; Z88.1 Allergy status to other antibiotic agents
CPT/HCPCS: 81000-TC; 84703-TC; 87086-TC; 87186-TC

== ENCOUNTER 2019-12-24 09:17 | Emergency (ER) | payer OTHER ==
[~2019-12-24] VITALS: Ht 172.7 cm; Wt 54.9 kg
--- NOTE | 2019-12-24 09:17 | NUR ---
PT BIB SELF C/O FEELING WEEK, AND HASN'T BEEN EATING FOR A WEEK. PT IS AAOX3, NOT IN RESPIRATORY DISTRESS, V/S STABLE, KEPT RESTED AND COMFORTABLE. WILL CONTINUE TO MONITOR.
--- NOTE | 2019-12-24 09:24 | NUR ---
SEEN AND EXAMINED BY .
--- NOTE | 2019-12-24 09:30 | NUR ---
URINE SPECIMEN COLLECTED AND SENT TO LAB.
[2019-12-24 09:37] LABS: APPEARANCE,URINE Turbid (CLEAR); BILIRUBIN,URINE SMALL (NEGATIVE); BLOOD, URINE Moderate Ery/uL (NEGATIVE); COLOR,URINE Dark (YELLOW); KETONES,URINE Negative (NEGATIVE); LEUKOCYTE ESTERASE ,URINE Negative (NEGATIVE); NITRITE, URINE Negative (NEGATIVE); PROTEIN,URINE >=300 mg/dl (NEGATIVE); UGLUCOSE Negative (NEGATIVE)
[2019-12-24 09:42] LABS: BACTERIA,URINE Many /HPF (None Seen); SQUAMOUS EPITHELIAL CELL,UR Few /HPF (None Seen)
--- NOTE | 2019-12-24 09:54 | NUR ---
CALLED LAB FOR PT BLOOD DRAW.
--- NOTE | 2019-12-24 09:56 | NUR ---
ER PHLEB AT BEDSIDE FOR BLOOD DRAW.
[2019-12-24 10:03] LABS: BASOPHILS # (AUTO) 0.1 /CMM (0.0-0.2); BASOPHILS % (AUTO) 3.3 % (0.0-2.0); EOSINOPHILS % (AUTO) 1.4 % (0.0-6.0); HEMATOCRIT 40 % (33-45); HEMOGLOBIN 13.2 g/dL (11.5-14.8); LYMPHOCYTES % (AUTO) 36.6 % (20.0-44.0); MEAN CORPUSCULAR HGB CONC 34 g/dl (31.0-36.0); MEAN CORPUSCULAR VOLUME 105 fL (82-100); MONOCYTES # (AUTO) 0.4 /CMM (0.1-1.30); MONOCYTES % (AUTO) 14.1 % (2.0-12.0); NEUTROPHILS # (AUTO) 1.3 /CMM (1.8-8.9); NEUTROPHILS % (AUTO) 44.6 % (43.0-81.0); PLATELET COUNT (AUTO) 103 /CMM (150-450); RED BLOOD CELL COUNT(AUTO) 3.76 MIL/uL (4.0-5.2); WHITE BLOOD COUNT (AUTO) 2.9 K/uL (4.3-11.0)
[2019-12-24 10:10] LABS: CALCIUM, SERUM 8.5 mg/dL (8.5-10.1); CREATININE 0.6 mg/dL (0.6-1.3)
[2019-12-24 10:16] LABS: ALBUMIN 3.9 g/dL (3.4-5.0); BILIRUBIN,TOTAL 0.7 mg/dL (0.2-1.0); TOTAL PROTEIN, SERUM 8.8 g/dL (6.4-8.2)
[2019-12-24] MEDS ORDERED: POTASSIUM CHLORIDE 20 MEQ TAB.PRT.SR PO ONE ×2 (10:27→10:30)
[2019-12-24 10:30] VITALS: BP 124/59
--- NOTE | 2019-12-24 10:30 | NUR ---
Patient discharged to home in stable condition. Written and verbal after care instructions given. Patient verbalizes understanding of instruction.
== END 2019-12-24 10:31 | disposition home or self-care (01) ==
LOC: ER 09:21
DX: E87.6 Hypokalemia (principal); N30.00 Acute cystitis without hematuria; F32.9 Major depressive disorder, single episode, unspecified; F10.10 Alcohol abuse, uncomplicated; Z88.1 Allergy status to other antibiotic agents; Y90.9 Presence of alcohol in blood, level not specified
CPT/HCPCS: 36415; 80053-TC; 81000-TC; 84703-TC; 85025-TC; 87086-TC; 87186-TC

== ENCOUNTER 2020-02-21 10:58 | Emergency (ER) | payer OTHER ==
[~2020-02-21] VITALS: Ht 172.7 cm; Wt 59.0 kg
[2020-02-21 11:11] VITALS: BP 112/85
== END 2020-02-21 12:12 | disposition home or self-care (01) ==
LOC: ER 11:03
DX: S90.822A Blister (nonthermal), left foot, initial encounter (principal); L03.116 Cellulitis of left lower limb; Z87.440 Personal history of urinary (tract) infections; Z88.1 Allergy status to other antibiotic agents; X58.XXXA Exposure to other specified factors, initial encounter; Y93.89 Activity, other specified; Y92.89 Other specified places as the place of occurrence of the external cause; Y99.8 Other external cause status

== ENCOUNTER 2020-02-26 09:52 | Emergency (ER) | payer OTHER ==
[~2020-02-26] VITALS: Ht 172.7 cm; Wt 55.8 kg
[2020-02-26 10:00] VITALS: BP 115/85
[2020-02-26] MEDS ORDERED: LORAZEPAM 1 MG TABLET ONE (10:19)
[2020-02-26] MEDS ORDERED: LORAZEPAM 1 MG TABLET PO ONE (10:30)
--- NOTE | 2020-02-26 10:47 | NUR ---
Patient discharged to home in stable condition. Written and verbal after care instructions given. Patient verbalizes understanding of instruction.
== END 2020-02-26 10:48 | disposition home or self-care (01) ==
LOC: ER 09:56
DX: S90.829A Blister (nonthermal), unspecified foot, initial encounter (principal); F10.239 Alcohol dependence with withdrawal, unspecified; Y90.9 Presence of alcohol in blood, level not specified; Z87.440 Personal history of urinary (tract) infections; Z88.1 Allergy status to other antibiotic agents; X58.XXXA Exposure to other specified factors, initial encounter; Y93.89 Activity, other specified; Y92.89 Other specified places as the place of occurrence of the external cause; Y99.8 Other external cause status

== ENCOUNTER 2020-05-01 12:10 | Emergency (ER) | payer OTHER ==
[~2020-05-01] VITALS: Ht 170.2 cm; Wt 68.0 kg
[2020-05-01 12:21] VITALS: BP 134/77
--- NOTE | 2020-05-01 12:33 | NUR ---
SEEN AND EXAMINED BY .
--- NOTE | 2020-05-01 12:40 | NUR ---
URINE SPECIMEN COLLECTED AND SENT TO LAB.
[2020-05-01 12:58] LABS: BILIRUBIN,URINE NEGATIVE (NEGATIVE); COLOR,URINE YELLOW (YELLOW); LEUKOCYTE ESTERASE ,URINE NEGATIVE (NEGATIVE); NITRITE, URINE NEGATIVE (NEGATIVE); PROTEIN,URINE NEGATIVE (NEGATIVE); UGLUCOSE NEGATIVE (NEGATIVE); UROBILINOGEN,URINE 0.2 EU/dL (0.2)
[2020-05-01] MEDS ORDERED: CEFTRIAXONE 1 G VIAL IM ONE (13:30)
[2020-05-01 13:38] LABS: BACTERIA,URINE Few /HPF (None Seen); SQUAMOUS EPITHELIAL CELL,UR Many /HPF (None Seen); WBC,URINE 0-2 /HPF (0-3)
[2020-05-01] MEDS ORDERED: LIDOCAINE /MPF 1% VIAL 5 ML VIAL ONE (13:44)
[2020-05-01] MEDS ORDERED: CEFTRIAXONE 500 MG VIAL ONE (13:44)
[2020-05-01] MEDS ORDERED: KETOROLAC TROMETHAMINE INJ 30 MG/ML VIAL IM ONE (14:00)
[2020-05-01] MEDS ORDERED: PHEN-704 PO (14:05)
[2020-05-01] MEDS ORDERED: AZITHROMYCIN 250 MG TABLET ONE (14:07)
[2020-05-01] MEDS ORDERED: KETOROLAC TROMETHAMINE 15 MG/ML VIAL ONE (14:07)
--- NOTE | 2020-05-01 14:26 | NUR ---
Patient discharged to home in stable condition. Written and verbal after care instructions given. Patient verbalizes understanding of instruction.
[2020-05-01] MEDS ORDERED: AZITHROMYCIN 250 MG TABLET PO ONE (14:30)
== END 2020-05-01 14:27 | disposition home or self-care (01) ==
LOC: ER 12:11
DX: A64 Unspecified sexually transmitted disease (principal); R30.0 Dysuria; F32.9 Major depressive disorder, single episode, unspecified; F10.20 Alcohol dependence, uncomplicated; Y90.9 Presence of alcohol in blood, level not specified; Z87.440 Personal history of urinary (tract) infections; Z88.1 Allergy status to other antibiotic agents
CPT/HCPCS: 81001; 84703; 87491; 87591; 96372 ×2; 99284; J0696; J1885; J3490

== ENCOUNTER 2020-06-11 12:07 | Emergency (ER) | payer OTHER ==
[~2020-06-11] VITALS: Ht 172.7 cm; Wt 58.1 kg
[~2020-06-11 12:07] MED LIST changes: -IV NS 0.9% 1,000 ML BAG IV ONE; -KETOROLAC TROMETHAMINE 15 MG/ML VIAL ONE; -KETOROLAC TROMETHAMINE INJ 30 MG/ML VIAL IV ONE; -ONDANSETRON HCL/PF 4 MG/2 ML VIAL IVP ONE; -ONDANSETRON HCL/PF 4 MG/2 ML VIAL ONE; +PHEN-704 PO
--- NOTE | 2020-06-11 12:07 | NUR ---
PT BIB SELF C/O WEAKNESS "I FEEL DEHYDRATED" PT IS AAOX4, NOT IN RESPIRATORY DISTRESS, V/S STABLE, KEPT RESTED AND COMFORTABLE. WILL CONTINUE TO MONITOR.
[2020-06-11] MEDS ORDERED: IV NS 0.9% 1,000 ML BAG IV ONE (12:30)
--- NOTE | 2020-06-11 12:30 | NUR ---
URINE SPECIMEN COLLECTED AND SENT TO LAB.
[2020-06-11 12:35] LABS: BILIRUBIN,URINE Negative (NEGATIVE); COLOR,URINE YELLOW (YELLOW); LEUKOCYTE ESTERASE ,URINE Small (NEGATIVE); NITRITE, URINE Negative (NEGATIVE); PH,URINE 6.5 (5.0-8.0); PROTEIN,URINE 100 mg/dl (NEGATIVE); UGLUCOSE Negative (NEGATIVE); UROBILINOGEN,URINE 0.2 EU/dL (0.2)
--- NOTE | 2020-06-11 12:35 | NUR ---
IV LINE ESTABLISHED BLOOD DRAWN AND SENT TO LAB.
[2020-06-11 12:43] LABS: MONOCYTES # (AUTO) 0.3 /CMM (0.1-1.30); WHITE BLOOD COUNT (AUTO) 4.8 K/uL (4.3-11.0)
[2020-06-11 12:46] LABS: BASOPHILS % (AUTO) 0.8 % (0.0-2.0); HEMATOCRIT 38 % (33-45); HEMOGLOBIN 12.7 g/dL (11.5-14.8); LYMPHOCYTES # (AUTO) 1.2 /CMM (0.8-4.8); LYMPHOCYTES % (AUTO) 25.6 % (20.0-44.0); MEAN CORPUSCULAR HGB CONC 34 g/dl (31.0-36.0); MEAN CORPUSCULAR VOLUME 96 fL (82-100); MONOCYTES % (AUTO) 5.7 % (2.0-12.0); NEUTROPHILS # (AUTO) 3.2 /CMM (1.8-8.9); NEUTROPHILS % (AUTO) 66.9 % (43.0-81.0); PLATELET COUNT (AUTO) 86 /CMM (150-450); RED BLOOD CELL COUNT(AUTO) 3.89 MIL/uL (4.0-5.2)
[2020-06-11 13:02] LABS: BACTERIA,URINE Many /HPF (None Seen); WBC,URINE 21-50 /HPF (0-3)
[2020-06-11 13:04] LABS: ALANINE AMINOTRANSFERASE 64 U/L (12-78); ALBUMIN 3.9 g/dL (3.4-5.0); ALCOHOL, BLOOD 438 mg/dL (0-0); ALKALINE PHOSPHATASE 129 U/L (46-116); ASPARTATE AMINOTRANSFERASE 149 U/L (15-37); BILIRUBIN,DIRECT 0.1 mg/dL (0.0-0.2); BILIRUBIN,TOTAL 0.5 mg/dL (0.2-1.0); CALCIUM, SERUM 8.3 mg/dL (8.5-10.1); CARBON DIOXIDE 32 mmol/L (21-32); CHLORIDE 100 mmol/L (98-107); CREATININE 0.6 mg/dL (0.6-1.3); GLUCOSE 91 mg/dL (74-106); POTASSIUM 2.9 mmol/L (3.5-5.1); SODIUM SERUM 141 mmol/L (136-145); TOTAL PROTEIN, SERUM 8.2 g/dL (6.4-8.2); UREA NITROGEN, BLOOD 11 mg/dL (7-18)
[2020-06-11 13:06] LABS: SQUAMOUS EPITHELIAL CELL,UR 0-2 /HPF (None Seen)
[2020-06-11 13:10] LABS: ACETAMINOPHEN < 10 ug/ml (10-30)
[2020-06-11 14:47] LABS: BAND % (MANUAL) 1 % (0.0-5.0); LYMPHOCYTES % (MANUAL) 28 % (16-48); MONOCYTES % (MANUAL) 6 % (0-11.0); NEUTROPHILS % (MANUAL) 65 (42-76)
--- NOTE | 2020-06-11 20:13 | NUR ---
PT AWAKE, REQUESTING TO DRINK WATER. PROVIDED WITH WATER. VSS.
[2020-06-11] MEDS ORDERED: LORAZEPAM 1 MG TABLET ONE (21:28)
[2020-06-11] MEDS ORDERED: POTASSIUM CHLORIDE 20 MEQ TAB.PRT.SR PO ONE ×2 (21:28→21:30)
[2020-06-11] MEDS ORDERED: IV NS 0.9% 1,000 ML IV ONE (21:30)
[2020-06-11] MEDS ORDERED: CEFTRIAXONE 1 G in IV D5W 50 ML IV ONE (21:30)
[2020-06-11] MEDS ORDERED: LORAZEPAM 1 MG TABLET PO ONE (21:30)
[2020-06-11] MEDS ORDERED: CHLO25CA22 PO (21:33)
[2020-06-11] MEDS ORDERED: CEPH500C2 PO (21:34)
[2020-06-11] MEDS ORDERED: CEFTRIAXONE 1GM BAG (ER ONLY) 50 ML IV ONE (21:41)
--- NOTE | 2020-06-11 23:00 | NUR ---
IV removed. Catheter intact and site benign. Pressure and 4x4 applied to site. No bleeding noted. Patient discharged to home in stable condition. Written and verbal after care instructions given. Patient verbalizes understanding of instruction and RX.
[2020-06-12 00:03] VITALS: BP 121/72
== END 2020-06-11 23:03 | disposition home or self-care (01) ==
LOC: ER 12:12
DX: F10.129 Alcohol abuse with intoxication, unspecified (principal); N30.00 Acute cystitis without hematuria; E86.0 Dehydration; E87.6 Hypokalemia; F19.10 Other psychoactive substance abuse, uncomplicated; R94.5 Abnormal results of liver function studies; D69.6 Thrombocytopenia, unspecified; F32.9 Major depressive disorder, single episode, unspecified; Y90.8 Blood alcohol level of 240 mg/100 ml or more; Z87.440 Personal history of urinary (tract) infections; Z88.1 Allergy status to other antibiotic agents; Z79.899 Other long term (current) drug therapy
CPT/HCPCS: 36415; 80048; 80076; 80299; 80307; 80320; 81001; 84703; 85007; 85025; 87077; 87086; 87186; 96361; 96365; 99285; J0696; J7030 ×2; G0480